=== PATIENT | male | born 1975 | race Caucasian/White ===

== ENCOUNTER 2018-04-09 11:36 | Emergency (ER) | payer OTHER ==
[2018-04-09 11:43] VITALS: BP 124/72
--- NOTE | 2018-04-09 11:50 | EDPHY ---
H & P Stated Complaint: UX TODAY DX DVT R LEG POST ACHILLES TENDON SURGERY/NEEDS RX FOR XARELTO Time Seen by Provider: 04/09/18 11:49 HPI/ROS: CHIEF COMPLAINT: Diagnosed with DVT HISTORY OF PRESENT ILLNESS: The patient presents to the ED with complaints of right calf pain. The patient is approximately 1 month status post Achilles tendon repair. He has been immobilized since that time. He developed acute right calf pain yesterday. An outpatient ultrasound was obtained which demonstrated a DVT. The patient was referred to the ED for further evaluation. The patient denies additional past medical history. He denies any chest pain or shortness of breath. He denies additional acute complaints. REVIEW OF SYSTEMS: A comprehensive 10 point review of systems is otherwise negative aside from elements mentioned in the history of present illness. Source: Patient Exam Limitations: No limitations - Personal History Current Tetanus Diphtheria and Acellular Pertussis (TDAP): Yes - Medical/Surgical History Hx Asthma: No Hx Chronic Respiratory Disease: No Hx Diabetes: No Hx Cardiac Disease: No Hx Renal Disease: No Hx Cirrhosis: No Hx Alcoholism: No Hx HIV/AIDS: No Hx Splenectomy or Spleen Trauma: No Other PMH: Pericarditis, right elbow and left knee surgery ACHILLES TENDON SURG / DVT - Family History Significant Family History: No pertinent family hx - Social History Smoking Status: Never smoked - Physical Exam Exam: General Appearance: Alert, no distress Eyes: Pupils equal and round no pallor or injection ENT, Mouth: Mucous membranes moist Respiratory: There are no retractions, lungs are clear to auscultation Cardiovascular: Regular rate and rhythm Gastrointestinal: Abdomen is soft and nontender, no masses, bowel sounds normal Neurological: 5/5 strength all 4 extremities Skin: Warm and dry, no rashes Musculoskeletal: Neck is supple nontender Extremities: Splint to the right lower extremity, right calf tenderness is noted, normal capillary refill Constitutional: Initial Vital Signs Temperature (C) 36.7 C 04/09/18 11:40 Heart Rate 76 04/09/18 11:40 Respiratory Rate 17 04/09/18 11:40 Blood Pressure 124/72 H 04/09/18 11:40 O2 Sat (%) 96 04/09/18 11:40 O2 Delivery Mode Room Air Allergies/Adverse Reactions: No Known Allergies Allergy (Verified 04/09/18 11:38) Home Medications: Medication Instructions Recorded Hydrocodone-Acetamin 5-300 mg 04/09/18 Rivaroxaban [Xarelto 15mg (*)] 15 mg PO BID #42 tab 04/09/18 Medical Decision Making - Diagnostics Imaging Results: Imaging Impressions Extremity Venous Study 04/09/18 10:30 Impression: Deep venous thrombosis involving the paired right posterior tibial and peroneal veins, and the [id number] popliteal vein. Findings were discussed with Nohemi ([phone]), the medical administrative technician at [facility] (who will contact the physician tax professional) at 11:14 AM, on 04/09/2018. ED Course/Re-evaluation: Patient presents to the ED with a DVT in the setting of a recent surgery. The patient will be started on Xarelto. He will follow up with his primary care provider within the next week. He is discharged home with customary aftercare instructions and return precautions. Departure - Departure Disposition: Home, Routine, Self-Care Clinical Impression: Deep vein thrombosis (DVT) of right lower extremity Condition: Good Instructions: Deep Vein Thrombosis (ED) Additional Instructions: 1. Please begin Xarelto as directed for treatment of your blood clot. 2. Please schedule a follow-up appointment with primary care to be seen in the next 1-2 weeks. 3. Return to the ED for markedly worsening symptoms of pain, bleeding, severe chest pain or shortness of breath. 4. Your primary care provider will need to place you on once a day Xarelto after 22 days of treatment with twice a day medication. Referrals: Iam Byers MD [Medical Doctor] - As per Instructions
== END 2018-04-09 12:09 | disposition home or self-care (01) ==
DX: I82.431 Acute embolism and thrombosis of right popliteal vein (principal); I82.441 Acute embolism and thrombosis of right tibial vein